=== PATIENT | female | born 1975 | race Caucasian/White ===

== ENCOUNTER 2016-10-09 12:54 | Emergency (ER) | payer OTHER ==
[2016-10-09] MEDS ORDERED: OPTIRAY 350 100 ML VIAL HMH IV ONE (12:55)
[2016-10-09] MEDS ORDERED: DILAUDID 1 MG/ML AMP ONE (23:14)
[2016-10-10] MEDS ORDERED: ONDANSETRON ODT 4 MG TAB ONE (00:57)
== END 2016-10-10 01:11 | disposition home or self-care (01) ==
LOC: ER 12:54
DX: R10.31 Right lower quadrant pain (principal); N83.201 Unspecified ovarian cyst, right side; N85.8 Other specified noninflammatory disorders of uterus
CPT/HCPCS: 36415; 74177; 76830; 80053; 81003; 83690; 85025; 96374; 99285; J1170; Q9967